=== PATIENT | male | born 1960 | race Caucasian/White ===

== ENCOUNTER 2019-04-21 07:41 | Day surgery (SDC) | payer OTHER | END 2019-04-21 09:21 | disposition home or self-care (01) | LOC: FASU-ENDO 07:41 ==

== ENCOUNTER 2024-03-24 07:43 | Day surgery (SDC) | payer BC ==
[2024-03-19 09:22] VITALS: BMI 25.2
[2024-03-24] MEDS ORDERED: PROPOFOL 160 ML ONE (07:53)
[2024-03-24] MEDS ORDERED: LIDOCAINE HCL/PF 2% SDV 5ML VIAL ONE (07:53)
[2024-03-24 09:20] VITALS: RESP 20; TEMP 97
[2024-03-24 09:27] VITALS: BP 102/65; PULSE 76
== END 2024-03-24 09:20 | disposition home or self-care (01) ==
LOC: FASU-ENDO 07:43
PROVIDERS: ATTEND Internal Medicine Gastroenterology
PROC: 0DJD8ZZ Inspection of Lower Intestinal Tract, Via Natural or Artificial Opening Endoscopic (ICD-10-PCS; principal; 2024-03-24 08:28)
DX: Z12.11 Encounter for screening for malignant neoplasm of colon (principal); K57.30 Diverticulosis of large intestine without perforation or abscess without bleeding; Z80.0 Family history of malignant neoplasm of digestive organs